=== PATIENT | female | born 2005 | race African-American/Black ===

== ENCOUNTER 2025-07-07 08:17 | Emergency (ER) | payer MEDICAID | END 2025-07-07 12:10 | disposition home or self-care (01) | LOC: EDSEX 08:17 → CSHERS 08:17 | DX: O99.512 Diseases of the respiratory system complicating pregnancy, second trimester (principal); R09.81 Nasal congestion; Z3A.18 18 weeks gestation of pregnancy | CPT/HCPCS: 87081; 87428; 87430; 93005; 99283 ==